=== PATIENT | female | born 1960 | race Caucasian/White ===

== ENCOUNTER 2016-10-06 15:22 | Emergency (ER) | payer OTHER ==
--- NOTE | 2016-10-06 17:12 | ED NURSING NOTES ---
Clinical Report - [facility] [place] [address] 10/06/2016 15:26 Patient: CUBA MARQUES TRIAGE Acuity: LEVEL 4. Chief Complaint: LEFT UPPER EXTREMITY PAIN, SWELLING and REDNESS. Location of symptoms- left 2nd finger. Alert. No acute distress. SEPSIS SCREEN: Sepsis Screen. Negative (no infection suspected/documented). LESLIE COMA SCORE: [place] Coma Scale: 15- eyes open spontaneously (4); best verbal response- oriented x 4 (5); best motor response- obeys commands (6). --15:41 Ralph Dangelo R.N. 15:31 10/06/16. BP: 112/87. HR: 110. RR: 22. O2 saturation: 97%. Temp: 98.2 F (oral). Pain level now: 12/10. --15:41 Ralph Dangelo R.N. Weight: 121.1 kg stated. Height/Length: 65 inches Per Patient. BMI: 44.5. --15:33 Ralph Dangelo R.N. Medications Levothyroxine Sodium Oral. --15:34 Ralph Dangelo R.N. Lyrica Oral. --15:35 Ralph Dangelo R.N. Gabapentin Oral. --15:35 Ralph Dangelo R.N. Losartan Potassium Oral. --15:35 Ralph Dangelo R.N. Furosemide Oral. --15:36 Ralph Dangelo R.N. Vitamin D Oral. --15:36 Ralph Dangelo R.N. Epi pin . --15:36 Ralph Dangelo R.N. Medication/allergy information source: the patient. --15:41 Ralph Dangelo R.N. Allergies morphine. --15:36 Ralph Dangelo R.N. Vicoden. --15:37 Ralph Dangelo R.N. History Arrived by private vehicle. Historian: patient. Unaccompanied. Primary physician (none). This occurred (3 days ago). PAST MEDICAL HX: Tetanus immunization status is uncertain. Immunizations: status is unknown. The patient is post-menopausal. SOCIAL HX: Current every day heavy tobacco smoker (cigarette)- less than 1 pack per day. No alcohol use or drug use. FALL RISK ASSESSMENT: Fall risk assessment completed. No fall risk identified. NUTRITIONAL RISK ASSESSMENT: The nutritional risk assessment revealed no deficiencies. FUNCTIONAL ASSESSMENT: Functional assessment: no impairments noted. LEARNING NEEDS ASSESSMENT: The learning needs assessment revealed no barriers. SKIN INTEGRITY ASSESSMENT: Skin integrity risk assessment completed. No skin integrity risk identified. --15:41 Ralph Dangelo R.N. PROBLEMS: Liver disease. Fibromyalgia. Chronic Fatigue Syndrome. --15:39 Ralph Dangelo R.N. ADDITIONAL SURGERIES: Cholecystectomy. . Shoulder Surgery. --15:39 Ralph Dangelo R.N. Assessment GENERAL / NEURO / PSYCH: Alert. Oriented X 4. Appears in no acute distress. Patient appears calm and cooperative. RESPIRATORY: Respirations not labored. CVS: Capillary refill less than 2 seconds. --15:41 Ralph Dangelo R.N. Interventions ID band on patient. To treatment room. --15:41 Ralph Dangelo R.N. PHYSICAL ASSESSMENT Ambulatory to room. GENERAL / NEURO / PSYCH: Oriented X 4. Alert. Appears in no acute distress. EXTREMITIES: Extremities exhibit normal ROM. Neuro-vascular status intact to the extremity. No upper extremity edema. Skin is non-tender on the extremities. Left index finger: tenderness, swelling and erythema. SKIN: Skin intact. Skin is warm and dry. --15:41 Ralph Dangelo R.N. NURSING PROGRESS NOTES Two patient identifiers checked. Call light placed in reach. Side rails up x 1. Bed placed in lowest position. Brakes of bed on. Patient ready for evaluation- chart flagged. --15:42 Ralph Dangelo R.N. 16:07 10/06/2016 Lidocaine Injection 1 % given. (given to ED ). --16:07 Jossie Rogers R.N. 16:08 10/06/2016 QNVOVEC-JXGERV-FTYCX PERTUSSIS IM 0.5 mL given. (Lot#: [id number], expiration date: 09/10/2018). Given in the left deltoid. Allergies verified and confirmed 5 rights. Vaccine information statement provided to the patient. --16:08 Jossie Rogers R.N. 16:09 10/06/2016 Keflex (Cephalexin) PO 500 mg given. Allergies verified and confirmed 5 rights. --16:09 Jossie Rogers R.N. 16:09 10/06/2016 Bactrim DS (Sulfamethoxazole-TMP DS) PO 1 tab given. Allergies verified and confirmed 5 rights. --16: Jossie Rogers R.N. 16:25 10/06/2016 Ativan (LORazepam) IM 1 mg given. Given in the right deltoid. Allergies verified, confirmed 5 rights and sedative warning given to the patient. --16:25 Jossie Rogers R.N. 17:32 10/06/2016 Oxycodone PO 10 mg given. Allergies verified, confirmed 5 rights and sedative warning given to the patient. --17:32 Jennifer Salas R.N. DISPOSITION / DISCHARGE Condition at departure: improved and stable. No learning barriers present. Discharge instructions provided and reviewed with the patient. Reviewed medication(s). Patient verbalized understanding. Written instructions provided in Canadian. The patient was discharged by the physician. She was discharged home and accompanied by lap layer. She left the Emergency Department ambulatory and via private vehicle. Driving (friend). --17:38 Jennifer Salas R.N. 17:33 10/06/16. BP: 103/66. HR: 103. RR: 18. O2 saturation: 97%. Pain level now 07/10. --17:38 Jennifer Salas R.N. Locked/Released at 10/06/2016 17:38 by Jennifer Salas R.N.
--- NOTE | 2016-10-06 17:12 | ED ORDER SUMMARY ---
..... Patient: CUBA MARQUES OrderSheet [facility] VisitID: [id number] [place] [address] 55y, F Registration Date/Time: 10/06/2016 ORDER SHEET Weight: 121.1 kg (stated) Allergies: morphine, Vicoden GENERAL ORDERS: MEDICATION ORDERS: Lidocaine Injection 1% (place at bedside) (15:43 10/06/2016 Sadaf Gatica) (Ack 15:45 MWinterer R.N.) (16:07 MWinterer R.N.) Vngfhyc-Pgfaql-Ktctn Pertussis IM 0.5 mL (NOW, per protocol) (15:43 10/06/2016 Sadaf Gatica) (Ack 15:45 MWinterer R.N.) (16:08 MWinterer R.N.) Keflex PO 500 mg (NOW) (15:43 10/06/2016 Sadaf Gatica) (Ack 15:45 MWinterer R.N.) (16:09 MWinterer R.N.) Bactrim DS PO (Tablet 800-160 mg) 1 tab (NOW) (15:43 10/06/2016 Sadaf Gatica) (Ack 15:45 MWinterer R.N.) (16:09 MWinterer R.N.) Ativan IM 1 mg (HIGH ALERT MEDICATION, NOW) (16:16 10/06/2016 MWinterer R.N. verbal order read back to Sadaf Gatica) (Ack 16:16 MWinterer R.N.) (16:25 MWinterer R.N.) - (oxycodone 10 mg PO once now) (17:10 10/06/2016 Sadaf Gatica) (Ack 17:26 SBalde R.N.) (17:32 SBalde R.N.) IV FLUIDS: ORDER SHEET NOTES: [Electronically signed by Jennifer Salas R.N. (17:38 10/06/2016)] [Electronically signed by Vaughn Rosas Dr. (19:15 10/07/2016)] [Electronically locked/signed by Jennifer Salas R.N. (17:38 10/06/2016)[place]
--- NOTE | 2016-10-06 17:12 | ED ORDER SUMMARY ---
..... Patient: CUBA MARQUES OrderSheet [facility] VisitID: [id number] [place] [address] 55y, F Registration Date/Time: 10/06/2016 ORDER SHEET Weight: 121.1 kg (stated) Allergies: morphine, Vicoden GENERAL ORDERS: MEDICATION ORDERS: Lidocaine Injection 1% (place at bedside) (15:43 10/06/2016 Sadaf Gatica) (Ack 15:45 MWinterer R.N.) (16:07 MWinterer R.N.) Usomoef-Tjkghg-Zygdp Pertussis IM 0.5 mL (NOW, per protocol) (15:43 10/06/2016 Sadaf Gatica) (Ack 15:45 MWinterer R.N.) (16:08 MWinterer R.N.) Keflex PO 500 mg (NOW) (15:43 10/06/2016 Sadaf Gatica) (Ack 15:45 MWinterer R.N.) (16:09 MWinterer R.N.) Bactrim DS PO (Tablet 800-160 mg) 1 tab (NOW) (15:43 10/06/2016 Sadaf Gatica) (Ack 15:45 MWinterer R.N.) (16:09 MWinterer R.N.) Ativan IM 1 mg (HIGH ALERT MEDICATION, NOW) (16:16 10/06/2016 MWinterer R.N. verbal order read back to Sadaf Gatica) (Ack 16:16 MWinterer R.N.) (16:25 MWinterer R.N.) - (oxycodone 10 mg PO once now) (17:10 10/06/2016 Sadaf Gatica) (Ack 17:26 SBalde R.N.) (17:32 SBalde R.N.) IV FLUIDS: ORDER SHEET NOTES: [Electronically signed by Jennifer Salas R.N. (17:38 10/06/2016)] [Electronically signed by Vaughn Rosas Dr. (19:15 10/07/2016)] [Electronically locked/signed by Jennifer Salas R.N. (17:38 10/06/2016)[place]
--- NOTE | 2016-10-06 17:12 | ED NURSING NOTES ---
Clinical Report - Nurses [facility] [place] [address] 10/06/2016 15:26 Patient: CUBA MARQUES TRIAGE Acuity: LEVEL 4. Chief Complaint: LEFT UPPER EXTREMITY PAIN, SWELLING and REDNESS. Location of symptoms- left 2nd finger. Alert. No acute distress. SEPSIS SCREEN: Sepsis Screen. Negative (no infection suspected/documented). LESLIE COMA SCORE: [place] Coma Scale: 15- eyes open spontaneously (4); best verbal response- oriented x 4 (5); best motor response- obeys commands (6). --15:41 Ralph Dangelo R.N. 15:31 10/06/16. BP: 112/87. HR: 110. RR: 22. O2 saturation: 97%. Temp: 98.2 F (oral). Pain level now: 12/10. --15:41 Ralph Dangelo R.N. Weight: 121.1 kg stated. Height/Length: 65 inches Per Patient. BMI: 44.5. --15:33 Ralph Dangelo R.N. Medications Levothyroxine Sodium Oral. --15:34 Ralph Dangelo R.N. Lyrica Oral. --15:35 Ralph Dangelo R.N. Gabapentin Oral. --15:35 Ralph Dangelo R.N. Losartan Potassium Oral. --15:35 Ralph Dangelo R.N. Furosemide Oral. --15:36 Ralph Dangelo R.N. Vitamin D Oral. --15:36 Ralph Dangelo R.N. Epi pin . --15:36 Ralph Dangelo R.N. Medication/allergy information source: the patient. --15:41 Ralph Dangelo R.N. Allergies morphine. --15:36 Ralph Dangelo R.N. Vicoden. --15:37 Ralph Dangelo R.N. History Arrived by private vehicle. Historian: patient. Unaccompanied. Primary physician (none). This occurred (3 days ago). PAST MEDICAL HX: Tetanus immunization status is uncertain. Immunizations: status is unknown. The patient is post-menopausal. SOCIAL HX: Current every day heavy tobacco smoker (cigarette)- less than 1 pack per day. No alcohol use or drug use. FALL RISK ASSESSMENT: Fall risk assessment completed. No fall risk identified. NUTRITIONAL RISK ASSESSMENT: The nutritional risk assessment revealed no deficiencies. FUNCTIONAL ASSESSMENT: Functional assessment: no impairments noted. LEARNING NEEDS ASSESSMENT: The learning needs assessment revealed no barriers. SKIN INTEGRITY ASSESSMENT: Skin integrity risk assessment completed. No skin integrity risk identified. --15:41 Ralph Dangelo R.N. PROBLEMS: Liver disease. Fibromyalgia. Chronic Fatigue Syndrome. --15:39 Ralph Dangelo R.N. ADDITIONAL SURGERIES: Cholecystectomy. . Shoulder Surgery. --15:39 Ralph Dangelo R.N. Assessment GENERAL / NEURO / PSYCH: Alert. Oriented X 4. Appears in no acute distress. Patient appears calm and cooperative. RESPIRATORY: Respirations not labored. CVS: Capillary refill less than 2 seconds. --15:41 Ralph Dangelo R.N. Interventions ID band on patient. To treatment room. --15:41 Ralph Dangelo R.N. PHYSICAL ASSESSMENT Ambulatory to room. GENERAL / NEURO / PSYCH: Oriented X 4. Alert. Appears in no acute distress. EXTREMITIES: Extremities exhibit normal ROM. Neuro-vascular status intact to the extremity. No upper extremity edema. Skin is non-tender on the extremities. Left index finger: tenderness, swelling and erythema. SKIN: Skin intact. Skin is warm and dry. --15:41 Ralph Dangelo R.N. NURSING PROGRESS NOTES Two patient identifiers checked. Call light placed in reach. Side rails up x 1. Bed placed in lowest position. Brakes of bed on. Patient ready for evaluation- chart flagged. --15:42 Ralph Dangelo R.N. 16:07 10/06/2016 Lidocaine Injection 1 % given. (given to ED ). --16:07 Jossie Rogers R.N. 16:08 10/06/2016 BQIKQOK-ELENMP-TJNYL PERTUSSIS IM 0.5 mL given. (Lot#: [id number], expiration date: 09/10/2018). Given in the left deltoid. Allergies verified and confirmed 5 rights. Vaccine information statement provided to the patient. --16:08 Jossie Rogers R.N. 16:09 10/06/2016 Keflex (Cephalexin) PO 500 mg given. Allergies verified and confirmed 5 rights. --16:09 Jossie Rogers R.N. 16:09 10/06/2016 Bactrim DS (Sulfamethoxazole-TMP DS) PO 1 tab given. Allergies verified and confirmed 5 rights. --16: Jossie Rogers R.N. 16:25 10/06/2016 Ativan (LORazepam) IM 1 mg given. Given in the right deltoid. Allergies verified, confirmed 5 rights and sedative warning given to the patient. --16:25 Jossie Rogers R.N. 17:32 10/06/2016 Oxycodone PO 10 mg given. Allergies verified, confirmed 5 rights and sedative warning given to the patient. --17:32 Jennifer Salas R.N. DISPOSITION / DISCHARGE Condition at departure: improved and stable. No learning barriers present. Discharge instructions provided and reviewed with the patient. Reviewed medication(s). Patient verbalized understanding. Written instructions provided in Hungarian. The patient was discharged by the physician. She was discharged home and accompanied by records management engineer. She left the Emergency Department ambulatory and via private vehicle. Driving (friend). --17:38 Jennifer Salas R.N. 17:33 10/06/16. BP: 103/66. HR: 103. RR: 18. O2 saturation: 97%. Pain level now 07/10. --17:38 Jennifer Salas R.N. Locked/Released at 10/06/2016 17:38 by Jennifer Salas R.N.
--- NOTE | 2016-10-06 17:12 | ED CLINICAL REPORT ---
Clinical Report - Physicians/Mid Levels [facility] [address] [place] [address] 10/06/2016 15:26 Patient: CUBA MARQUES Time Seen: 1530. Arrived- By private vehicle. Historian- patient. HISTORY OF PRESENT ILLNESS Chief Complaint: BOIL. This started 3 days ago and is still present and worsening. It is not gone now. It is described as painful. It has been located on the left index finger. No cause has been identified. Similar symptoms previously: None. Recent medical care: Not recently seen/assessed. REVIEW OF SYSTEMS No fever, chills, difficulty breathing or chest pain. All systems otherwise negative, except as recorded above. PAST HISTORY See nurses notes. Tetanus immunization status is unknown. Medications: Epi pin . Vitamin D Oral. Furosemide Oral. Losartan Potassium Oral. Gabapentin Oral. Lyrica Oral. Levothyroxine Sodium Oral. Allergies: morphine. Vicoden. SOCIAL HISTORY Never smoker. No alcohol use or drug use. No recent travel. Is a local resident. ADDITIONAL NOTES The nursing notes have been reviewed. PHYSICAL EXAM Vital Signs: 10/06/2016 15:31 BP: 112/87. HR: 110. RR: 22. O2 saturation: 97%. Temp: 98.2 F. Pain level now: 8/10. Blood pressure normal. Oxygen saturation normal. Appearance: Alert. Oriented X3. No acute distress. Eyes: Pupils equal, round and reactive to light. Conjunctivae and eyelids normal. ENT: Ears normal. Nose normal. Pharynx normal. CVS: Normal heart rate and rhythm. Heart sounds normal. Respiratory: No respiratory distress. Breath sounds normal. Chest nontender. Abdomen: Nontender. No organomegaly. Skin: (paronychia to the left index finger at the ulnar aspect. Extending cellulitis to the rest of the dorsal aspect of the digit. No crepitus. No sausage digit. No tenderness extending at the extensor or flexor tendon sheath. No lymphangitis. No other abnormalities noted. No other signs of trauma.). PROGRESS AND PROCEDURES Incision & Drainage of Abscess: The abscess is located (Left index finger). The risks of the procedure, benefits and alternatives were explained. Parenteral Ativan administered. Anesthesia provided using 1% lidocaine. Skin cleansed with Betadine. The abscess was incised with a #11 surgical blade. A moderate amount of pus was drained. Cavity was irrigated with saline. A dressing was applied. Estimated blood loss: 2 mL. ( no Complications. Patient tolerated procedure well.). Course of Care: he patient is a 55-year-old female with no pertinent past medical history presenting for evaluation of infection to the left finger. Patient has aparonychia on examination. After discussing with the patient the management of the paronychia, patient was agreeable to this. Informed verbal consent obtained. Patient was prepped and draped in the normal fashion. Please see procedure note for further details. Patient tolerated procedure well. Patient reported significant improvement with symptoms after the area was drained. Patient without systemic symptoms. No concern for sepsis at this time. The patient is nontoxic and in no acute distress however was anxious about the procedure. Had a discussion with the patient in regards to her workup here in emergency department including her diagnosis, home care, follow-up, and return precautions. All questions have been answered. The patient expressed understanding of these instructions and was agreeable to them. Disposition: Discharged. Condition: good. CLINICAL IMPRESSION 10/06/2016 15:31 BP: 112/87. HR: 110. RR: 22. O2 saturation: 97%. Temp: 98.2 F. Pain level now: 8/10. Vital Signs: have been reviewed. Blood pressure normal. Oxygen saturation normal. Paronychia left index finger (acute). Cellulitis of the left index finger. INSTRUCTIONS Warnings: GENERAL WARNINGS: Return or contact your physician immediately if your condition worsens or changes unexpectedly, if not improving as expected, or if other problems arise. Specifically return if pain, vomiting, bleeding, breathing difficulty or fever. Your Current Medications: CONTINUE TAKING THE FOLLOWING MEDICATIONS: Epi pin *. Furosemide Oral. Gabapentin Oral. Levothyroxine Sodium Oral. Losartan Potassium Oral. Lyrica Oral. Vitamin D Oral. Prescription Medications: Augmentin 875 mg: take 1 tablet orally every 12 hours for 10 days. No refill. Substitution is permissible. (disp 20 tabs) Bactrim DS 800 mg / 160 mg: take 1 tablet orally every 12 hours for 10 days. No refill. Substitution is permissible. (disp 20 tabs) Oxycodone/APAP 5 mg/325 mg: take 1-2 tablets orally every 6 hours as needed for pain. Dispense ten (10). No refill. Follow-up: Return to the emergency department as needed. Follow up with your doctor in three days. Reason for referral: recheck today's concerns. Summary of care provided to patient via paper. Screening today revealed the patient's blood pressure to be in the normal range. The patient should follow up with a primary care provider for blood pressure management. Understanding of the discharge instructions verbalized by patient. (Electronically signed by Vaughn Rosas Dr. 10/07/2016 19:15)
--- NOTE | 2016-10-07 19:15 | ED MAR SUMMARY ---
..... Medication Administration Record [facility] [address] [place] [address] Patient: CUBA MARQUES Visit ID: [id number] 55y, F Weight: 121.1 kg Height/Length: 65 in BMI: 44.5 ALLERGIES: Vicoden, morphine Given 16:07 10/06/2016 Jossie Rogers R.N. Medication Administered: LIDOCAINE [INJECTION], Dose: 1 % Injection. Medication Ordered: Lidocaine Injection 1% (place at bedside). Given 16:08 10/06/2016 Jossie Rogers R.N. Medication Administered: GDNJBRW-FLJFRY-KYBUD PERTUSSIS [IM], Dose: 0.5 mL IM. Medication Ordered: Qvlvcdh-Rrtfzl-Anwtf Pertussis IM 0.5 mL (NOW, per protocol). Given 16:10/06/2016 Jossie Rogers R.N. Medication Administered: KEFLEX [PO] (CEPHALEXIN), Dose: 500 mg PO. Medication Ordered: Keflex PO 500 mg (NOW). Given 16:09 10/06/2016 Jossie Rogers R.N. Medication Administered: BACTRIM DS [PO] (SULFAMETHOXAZOLE-TMP DS), Dose: 1 tab PO. Medication Ordered: Bactrim DS PO (Tablet 800-160 mg) 1 tab (NOW). Given 16:25 10/06/2016 Jossie Rogers R.N. Medication Administered: ATIVAN [IM] (LORAZEPAM), Dose: 1 mg IM. Medication Ordered: Ativan IM 1 mg (HIGH ALERT MEDICATION, NOW). Given 17:32 10/06/2016 Jennifer Salas R.N. Medication Administered: OXYCODONE [PO], Dose: 10 mg PO. Medication Ordered: - (oxycodone 10 mg PO once now).
--- NOTE | 2016-10-07 19:15 | ED DISCHARGE INSTRUCTIONS ---
Patient: CUBA MARQUES General Instructions [facility] VisitID: [id number] [place] [address] 55y, F Registration Date/Time: 10/06/2016 10/06/2016 15:31 BP: 112/87. HR: 110. RR: 22. O2 saturation: 97%. Temp: 98.2 F. Pain level now: 810. Vital Signs: have been reviewed. Blood pressure normal. Oxygen saturation normal. Paronychia left index finger (acute). Cellulitis of the left index finger. INSTRUCTIONS Warnings: GENERAL WARNINGS: Return or contact your physician immediately if your condition worsens or changes unexpectedly, if not improving as expected, or if other problems arise. Specifically return if pain, vomiting, bleeding, breathing difficulty or fever. Your Current Medications: CONTINUE TAKING THE FOLLOWING MEDICATIONS: Epi pin *. Furosemide Oral. Gabapentin Oral. Levothyroxine Sodium Oral. Losartan Potassium Oral. Lyrica Oral. Vitamin D Oral. Prescription Medications: Augmentin 875 mg: take 1 tablet orally every 12 hours for 10 days. No refill. Substitution is permissible. (disp 20 tabs) Bactrim DS 800 mg / 160 mg: take 1 tablet orally every 12 hours for 10 days. No refill. Substitution is permissible. (disp 20 tabs) Oxycodone/APAP 5 mg/325 mg: take 1-2 tablets orally every 6 hours as needed for pain. Dispense ten (10). No refill. Follow-up: Return to the emergency department as needed. Follow up with your doctor in three days. Reason for referral: recheck today's concerns. Summary of care provided to patient via paper. Screening today revealed the patient's blood pressure to be in the normal range. The patient should follow up with a primary care provider for blood pressure management. Understanding of the discharge instructions verbalized by patient. ADDITIONAL INFORMATION Cellulitis You have an infection of the skin known as cellulitis. This usually starts with a scrape, cut, insect bite, blister or other opening in the skin which becomes infected. This is a serious condition. It must be watched closely to be sure the infection is not spreading. With antibiotic treatment, the size of the red area will gradually shrink in size until the skin returns to normal. This will take 7-10 days. The red area should never increase in size once the antibiotic medicine has been started. Occasionally, an infection will be resistant to one antibiotic and another one will have to be used. Home Care: 1) Limit the use of the affected part, since excess movement can cause the infection to spread. 2) If the infection is on your leg, walk as little as possible during the first few days of the treatment. Keep your leg elevated while sitting. This will reduce swelling. 3) Take all of the antibiotic medicine exactly as directed until it is gone. Be careful not to miss any doses, especially during the first seven days. Follow Up with your doctor or this facility as directed. Check the infected area daily for the warning signs listed below. Get Prompt Medical Attention if any of the following occur: -- Spreading area of redness -- Increasing swelling or pain -- Appearance of pus or drainage -- Fever over 100.4 F (38.0 C) oral, or over 101.4 F (38.6 C) rectal, after two days on antibiotics Paronychia, Finger Or Toe Paronychia is an infection alongside the fingernail or toenail. It usually occurs from an opening in the cuticle or an ingrown toenail which lets bacteria under the skin. If there is pus present, the infection will need to be drained. If the infection is early, antibiotic treatment alone may be all that you need. Healing will take about 12 weeks. Home care The following guidelines will help you care for your wound at home: Twice a day for the first three days, clean and soak the toe or finger as follows: Soak your foot or hand in a tub of warm water for five minutes. Or, hold your toe or finger under a faucet of warm running water for five minutes. Clean any remaining crust away with soap and water using a cotton-tipped applicator. Apply antibiotic ointment to the infected area. Change the dressing daily or whenever it becomes soiled. If you were prescribed antibiotics, take them as directed until they are all gone. If your infection is on a toe, wear comfortable shoes with a lot of toe room, or open-toe sandals, while your toe is healing. You may use acetaminophen or ibuprofen to control pain, unless another medicine was prescribed.If you have chronic liver or kidney disease or ever had a stomach ulcer or GI bleeding, talk with your doctor before using these medicines. Follow-up care Follow up with your doctor or this facility as explained by our staff. When to seek medical care Get prompt medical attention if any of the following occur: Increasing redness, pain or swelling of the finger or toe Red streaks in the skin leading away from the wound Pus or fluid drainage Fever of 100.4F (38C) or higher, or as directed by your health care provider Amoxicillin Trihydrate, Clavulanate Potassium Oral tablet What is this medicine? AMOXICILLIN; CLAVULANIC ACID (a mox i RICHAR in; JIGNA berrios ic id) is a penicillin antibiotic. It is used to treat certain kinds of bacterial infections. It will not work for colds, flu, or other viral infections. How should I use this medicine? Take this medicine by mouth with a full glass of water. Follow the directions on the prescription label. Take at the start of a meal. Do not crush or chew. If the tablet has a score line, you may cut it in half at the score line for easier swallowing. Take your medicine at regular intervals. Do not take your medicine more often than directed. Take all of your medicine as directed even if you think you are better. Do not skip doses or stop your medicine early. Talk to your supervisor prop making regarding the use of this medicine in children. Special care may be needed. What side effects may I notice from receiving this medicine? Side effects that you should report to your doctor or health dialysis patient care technician as soon as possible: allergic reactions like skin rash, itching or hives, swelling of the face, lips, or tongue breathing problems dark urine fever or chills, sore throat redness, blistering, peeling or loosening of the skin, including inside the mouth seizures trouble passing urine or change in the amount of urine unusual bleeding, bruising unusually weak or tired white patches or sores in the mouth or throat Side effects that usually do not require medical attention (report to your doctor or health dialysis patient care technician if they continue or are bothersome): diarrhea dizziness headache nausea, vomiting stomach upset vaginal or anal irritation What may interact with this medicine? allopurinol anticoagulants control pills methotrexate probenecid What if I miss a dose? If you miss a dose, take it as soon as you can. If it is almost time for your next dose, take only that dose. Do not take double or extra doses. Where should I keep my medicine? Keep out of the reach of children. Store at room temperature below 25 degrees C (77 degrees F). Keep container tightly closed. Throw away any unused medicine after the expiration date. What should I tell my health care provider before I take this medicine? They need to know if you have any of these conditions: bowel disease, like colitis kidney disease liver disease mononucleosis an unusual or allergic reaction to amoxicillin, penicillin, cephalosporin, other antibiotics, clavulanic acid, other medicines, foods, dyes, or preservatives or trying to get breast-feeding What should I watch for while using this medicine? Tell your doctor or health dialysis patient care technician if your symptoms do not improve. Do not treat diarrhea with over the counter products. Contact your doctor if you have diarrhea that lasts more than 2 days or if it is severe and watery. If you have diabetes, you may get a false-positive result for sugar in your urine. Check with your doctor or health dialysis patient care technician. control pills may not work properly while you are taking this medicine. Talk to your doctor about using an extra method of control. Sulfamethoxazole, Trimethoprim Oral tablet What is this medicine? SULFAMETHOXAZOLE; TRIMETHOPRIM or SMX-TMP (suhl fuh meth OK stan zohl; trye METH oh prim) is a combination of a sulfonamide antibiotic and a second antibiotic, trimethoprim. It is used to treat or prevent certain kinds of bacterial infections. It will not work for colds, flu, or other viral infections. How should I use this medicine? Take this medicine by mouth with a full glass of water. Follow the directions on the prescription label. Take your medicine at regular intervals. Do not take it more often than directed. Do not skip doses or stop your medicine early. Talk to your supervisor prop making regarding the use of this medicine in children. Special care may be needed. This medicine has been used in children as young as 2 months of age. What side effects may I notice from receiving this medicine? Side effects that you should report to your doctor or health dialysis patient care technician as soon as possible: allergic reactions like skin rash or hives, swelling of the face, lips, or tongue breathing problems fever or chills, sore throat irregular heartbeat, chest pain joint or muscle pain pain or difficulty passing urine red pinpoint spots on skin redness, blistering, peeling or loosening of the skin, including inside the mouth unusual bleeding or bruising unusually weak or tired yellowing of the eyes or skin Side effects that usually do not require medical attention (report to your doctor or health dialysis patient care technician if they continue or are bothersome): diarrhea dizziness headache loss of appetite nausea, vomiting nervousness What may interact with this medicine? Do not take this medicine with any of the following medications: aminobenzoate potassium dofetilide metronidazole This medicine may also interact with the following medications: JIMI inhibitors like benazepril, enalapril, lisinopril, and ramipril cyclosporine digoxin diuretics indomethacin medicines for diabetes methenamine methotrexate phenytoin potassium supplements pyrimethamine sulfinpyrazone tricyclic antidepressants warfarin What if I miss a dose? If you miss a dose, take it as soon as you can. If it is almost time for your next dose, take only that dose. Do not take double or extra doses. Where should I keep my medicine? Keep out of the reach of children. Store at room temperature between 20 to 25 degrees C (68 to 77 degrees F). Protect from light. Throw away any unused medicine after the expiration date. What should I tell my health care provider before I take this medicine? They need to know if you have any of these conditions: anemia asthma being treated with anticonvulsants if you frequently drink alcohol containing drinks kidney disease liver disease low level of folic acid or oaawwne-0-tmbnposiw dehydrogenase poor nutrition or malabsorption porphyria severe allergies thyroid disorder an unusual or allergic reaction to sulfamethoxazole, trimethoprim, sulfa drugs, other medicines, foods, dyes, or preservatives or trying to get breast-feeding What should I watch for while using this medicine? Tell your doctor or health dialysis patient care technician if your symptoms do not improve. Drink several glasses of water a day to reduce the risk of kidney problems. Do not treat diarrhea with over the counter products. Contact your doctor if you have diarrhea that lasts more than 2 days or if it is severe and watery. This medicine can make you more sensitive to the sun. Keep out of the sun. If you cannot avoid being in the sun, wear protective clothing and use a sunscreen. Do not use sun lamps or tanning beds/booths. Oxycodone Hydrochloride, Acetaminophen Oral tablet What is this medicine? ACETAMINOPHEN; OXYCODONE (a set a KELLEE lila fen; ox i KOE done) is a pain reliever. It is used to treat mild to moderate pain. How should I use this medicine? Take this medicine by mouth with a full glass of water. Follow the directions on the prescription label. Take your medicine at regular intervals. Do not take your medicine more often than directed. Talk to your supervisor prop making regarding the use of this medicine in children. Special care may be needed. Patients over 65 years old may have a stronger reaction and need a smaller dose. What side effects may I notice from receiving this medicine? Side effects that you should report to your doctor or health dialysis patient care technician as soon as possible: allergic reactions like skin rash, itching or hives, swelling of the face, lips, or tongue breathing difficulties, wheezing confusion light headedness or fainting spells severe stomach pain yellowing of the skin or the whites of the eyes Side effects that usually do not require medical attention (report to your doctor or health dialysis patient care technician if they continue or are bothersome): dizziness drowsiness nausea vomiting What may interact with this medicine? alcohol antihistamines barbiturates like amobarbital, butalbital, butabarbital, methohexital, pentobarbital, phenobarbital, thiopental, and secobarbital benztropine drugs for bladder problems like solifenacin, trospium, oxybutynin, tolterodine, hyoscyamine, and methscopolamine drugs for breathing problems like ipratropium and tiotropium drugs for certain stomach or intestine problems like propantheline, homatropine methylbromide, glycopyrrolate, atropine, belladonna, and dicyclomine general anesthetics like etomidate, ketamine, nitrous oxide, propofol, desflurane, enflurane, halothane, isoflurane, and sevoflurane medicines for depression, anxiety, or psychotic disturbances medicines for sleep muscle relaxants naltrexone narcotic medicines (opiates) for pain phenothiazines like perphenazine, thioridazine, chlorpromazine, mesoridazine, fluphenazine, prochlorperazine, promazine, and trifluoperazine scopolamine tramadol trihexyphenidyl What if I miss a dose? If you miss a dose, take it as soon as you can. If it is almost time for your next dose, take only that dose. Do not take double or extra doses. Where should I keep my medicine? Keep out of the reach of children. This medicine can be abused. Keep your medicine in a safe place to protect it from theft. Do not share this medicine with anyone. Selling or giving away this medicine is dangerous and against the law. Store at room temperature between 20 and 25 degrees C (68 and 77 degrees F). Keep container tightly closed. Protect from light. This medicine may cause accidental overdose and if it is taken by other adults, children, or pets. Flush any unused medicine down the toilet to reduce the chance of harm. Do not use the medicine after the expiration date. What should I tell my health care provider before I take this medicine? They need to know if you have any of these conditions: brain tumor Crohn's disease, inflammatory bowel disease, or ulcerative colitis drink more than 3 alcohol containing drinks per day drug abuse or addiction head injury heart or circulation problems kidney disease or problems going to the bathroom liver disease lung disease, asthma, or breathing problems an unusual or allergic reaction to acetaminophen, oxycodone, other opioid analgesics, other medicines, foods, dyes, or preservatives or trying to get breast-feeding What should I watch for while using this medicine? Tell your doctor or health dialysis patient care technician if your pain does not go away, if it gets worse, or if you have new or a different type of pain. You may develop tolerance to the medicine. Tolerance means that you will need a higher dose of the medication for pain relief. Tolerance is normal and is expected if you take this medicine for a long time. Do not suddenly stop taking your medicine because you may develop a severe reaction. Your body becomes used to the medicine. This does NOT mean you are addicted. Addiction is a behavior related to getting and using a drug for a non-medical reason. If you have pain, you have a medical reason to take pain medicine. Your doctor will tell you how much medicine to take. If your doctor wants you to stop the medicine, the dose will be slowly lowered over time to avoid any side effects. You may get drowsy or dizzy. Do not drive, use machinery, or do anything that needs mental alertness until you know how this medicine affects you. Do not stand or sit up quickly, especially if you are an older patient. This reduces the risk of dizzy or fainting spells. Alcohol may interfere with the effect of this medicine. Avoid alcoholic drinks. There are different types of narcotic medicines (opiates) for pain. If you take more than one type at the same time, you may have more side effects. Give your health care provider a list of all medicines you use. Your doctor will tell you how much medicine to take. Do not take more medicine than directed. Call emergency for help if you have problems breathing. The medicine will cause constipation. Try to have a bowel movement at least every 2 to 3 days. If you do not have a bowel movement for 3 days, call your doctor or health dialysis patient care technician. Do not take Tylenol (acetaminophen) or medicines that have acetaminophen with this medicine. Too much acetaminophen can be very dangerous. Many nonprescription medicines contain acetaminophen. Always read the labels carefully to avoid taking more acetaminophen. You have been given the following additional information: Cellulitis Paronychia Amoxicillin Trihydrate, Clavulanate Potassium Oral tablet Sulfamethoxazole, Trimethoprim Oral tablet Oxycodone Hydrochloride, Acetaminophen Oral tablet (Electronically signed by Vaughn Rosas Dr. 10/07/2016 19:15)
--- NOTE | 2016-10-07 19:15 | ED MED RECONCILIATION SUMMARY ---
Patient: CUBA MARQUES Medication Reconciliation Report [facility] VisitID: [id number] [address] [place] [address] 55y, F Registration Date/Time: 10/06/2016 Weight: 121.1 kg Height/Length: 65 in. BMI: 44.5 ALLERGIES: morphine, Vicoden The patient's Home Medications are listed below: CONTINUE TAKING THE FOLLOWING MEDICATIONS: Epi pin Furosemide Oral Gabapentin Oral Levothyroxine Sodium Oral Losartan Potassium Oral Lyrica Oral Vitamin D Oral The source(s) of the original Home Medication information: patient The following Medications were given to the patient in the Emergency Department: Lidocaine [Injection] Injection 1 %, administered: 10/06/2016 4:07:00 PM [id number] PERTUSSIS [IM] IM 0.5 mL, administered: 10/06/2016 4:08:00 PM Keflex [PO] PO 500 mg, administered: 10/06/2016 4:09:00 PM Bactrim DS [PO] PO 1 tab, administered: 10/06/2016 4:09:00 PM Ativan [IM] IM 1 mg, administered: 10/06/2016 4:25:00 PM Oxycodone [PO] PO 10 mg, administered: 10/06/2016 5:32:00 PM The following Medications were prescribed to the patient: Augmentin 875 mg: take 1 tablet orally every 12 hours for 10 days. No refill. Substitution is permissible.(disp 20 tabs) -- Vaughn Rosas Dr. Bactrim DS 800 mg / 160 mg: take 1 tablet orally every 12 hours for 10 days. No refill. Substitution is permissible.(disp 20 tabs) -- Vaughn Rosas Dr. Oxycodone/APAP 5 mg/325 mg: take 1-2 tablets orally every 6 hours as needed for pain. Dispense ten (10). No refill. -- Vaughn Rosas Dr.
--- NOTE | 2016-10-07 19:15 | ED MAR SUMMARY ---
..... Medication Administration Record [facility] [address] [place] [address] Patient: CUBA MARQUES Visit ID: [id number] 55y, F Weight: 121.1 kg Height/Length: 65 in BMI: 44.5 ALLERGIES: Vicoden, morphine Given 16:07 10/06/2016 Jossie Rogers R.N. Medication Administered: LIDOCAINE [INJECTION], Dose: 1 % Injection. Medication Ordered: Lidocaine Injection 1% (place at bedside). Given 16:08 10/06/2016 Jossie Rogers R.N. Medication Administered: [id number] PERTUSSIS [IM], Dose: 0.5 mL IM. Medication Ordered: Dfgixkv-Fqvmuj-Vshjx Pertussis IM 0.5 mL (NOW, per protocol). Given 16:10/06/2016 Jossie Rogers R.N. Medication Administered: KEFLEX [PO] (CEPHALEXIN), Dose: 500 mg PO. Medication Ordered: Keflex PO 500 mg (NOW). Given 16:09 10/06/2016 Jossie Rogers R.N. Medication Administered: BACTRIM DS [PO] (SULFAMETHOXAZOLE-TMP DS), Dose: 1 tab PO. Medication Ordered: Bactrim DS PO (Tablet 800-160 mg) 1 tab (NOW). Given 16:25 10/06/2016 Jossie Rogers R.N. Medication Administered: ATIVAN [IM] (LORAZEPAM), Dose: 1 mg IM. Medication Ordered: Ativan IM 1 mg (HIGH ALERT MEDICATION, NOW). Given 17:32 10/06/2016 Jennifer Salas R.N. Medication Administered: OXYCODONE [PO], Dose: 10 mg PO. Medication Ordered: - (oxycodone 10 mg PO once now).
--- NOTE | 2016-10-07 19:15 | ED MED RECONCILIATION SUMMARY ---
Patient: CUBA MARQUES Medication Reconciliation Report [facility] VisitID: [id number] [address] [place] [address] 55y, F Registration Date/Time: 10/06/2016 Weight: 121.1 kg Height/Length: 65 in. BMI: 44.5 ALLERGIES: morphine, Vicoden The patient's Home Medications are listed below: CONTINUE TAKING THE FOLLOWING MEDICATIONS: Epi pin Furosemide Oral Gabapentin Oral Levothyroxine Sodium Oral Losartan Potassium Oral Lyrica Oral Vitamin D Oral The source(s) of the original Home Medication information: patient The following Medications were given to the patient in the Emergency Department: Lidocaine [Injection] Injection 1 %, administered: 10/06/2016 4:07:00 PM [id number] PERTUSSIS [IM] IM 0.5 mL, administered: 10/06/2016 4:08:00 PM Keflex [PO] PO 500 mg, administered: 10/06/2016 4:09:00 PM Bactrim DS [PO] PO 1 tab, administered: 10/06/2016 4:09:00 PM Ativan [IM] IM 1 mg, administered: 10/06/2016 4:25:00 PM Oxycodone [PO] PO 10 mg, administered: 10/06/2016 5:32:00 PM The following Medications were prescribed to the patient: Augmentin 875 mg: take 1 tablet orally every 12 hours for 10 days. No refill. Substitution is permissible.(disp 20 tabs) -- Vaughn Rosas Dr. Bactrim DS 800 mg / 160 mg: take 1 tablet orally every 12 hours for 10 days. No refill. Substitution is permissible.(disp 20 tabs) -- Vaughn Rosas Dr. Oxycodone/APAP 5 mg/325 mg: take 1-2 tablets orally every 6 hours as needed for pain. Dispense ten (10). No refill. -- Vaughn Rosas Dr.
== END 2016-10-06 17:38 | disposition home or self-care (01) ==
LOC: ED SRH 15:22
DX: L03.012 Cellulitis of left finger (principal); Z79.899 Other long term (current) drug therapy; Z88.5 Allergy status to narcotic agent; Z23 Encounter for immunization